=== PATIENT | female | born 1950 | race Caucasian/White ===

== ENCOUNTER → 2022-11-15 | Outpatient (CLI) | payer MEDICARE, SELFPAY ==
--- NOTE | 2022-11-15 10:58 | BD_ITS ---
STUDY: DUAL ENERGY X-RAY ABSORPTIOMETRY / DXA REASON FOR EXAM: Female, 72 years old. Postmenopausal. TECHNIQUE: Bone Mineral Density (BMD) measurements of lumbar spine and bilateral hips were obtained. COMPARISON: None. FINDINGS: Lumbar Spine (L1-L4): g/cm2 (0.926) / T-score (-1.1) / Z-score (1.3) Findings are suggestive of osteopenia with a low fracture risk. Left Femur Total: g/cm2 (0.669) / T-score (-2.2) / Z-score (-0.5) Left Femoral Neck: g/cm2 (0.668) / T-score (-1.6) / Z-score (0.4) Right Femur Total: g/cm2 (0.680) / T-score (-2.1) / Z-score (-0.4) Right Femoral Neck: g/cm2 (0.679) / T-score (-1.5) / Z-score (0.5) BD/Dexa Bone Density Study IMPRESSION: The patient is considered osteopenic as outlined below according to World James Organization (WHO) criteria with a moderate fracture risk. Reference Information: The T-score is the number of standard deviations above or below the standard which is normal for young adults at their peak bone mineral density. The World Health Organization (WHO) interprets the T-scores as follows: Above -1 Normal bone density Between -1 and -2.5 Osteopenia Equal to / or below -2.5 Osteoporosis As a practical clinical guideline, osteopenia may be graded as follows: Mild -1 through -1.5 Moderate -1.6 through -2.0 Severe -2.1 through -2.4 The Z-score is the number of standard deviations above or below age-matched controls. A Z-score of less than -1.5 would be considered abnormal. References: 1. NIH Osteoporosis and Related Bone Diseases www osteo.org 2. International Society for Clinical Densitometry www iscd.org 3. National Osteoporosis Foundation www nof.org Electronically Signed: Chavez Alcantar MD at 15:43 EST ,
== END | disposition home or self-care (01) ==
LOC: OPBD 10:51
PROVIDERS: PCP Internal Medicine; Referring Provider Orthopaedic Surgery; Visit Provider Orthopaedic Surgery
DX: M85.89 Other specified disorders of bone density and structure, multiple sites (principal)
CPT/HCPCS: 77080

== ENCOUNTER → 2022-12-07 | Outpatient (CLI) | payer MEDICARE, SELFPAY ==
--- NOTE | 2022-12-07 10:23 | MRI_ITS ---
STUDY: MRI LUMBAR SPINE WITHOUT CONTRAST REASON FOR EXAM: Female, 72 years old. Back pain. TECHNIQUE: Standardized fat and water weighted pulse sequences were obtained in the sagittal and axial planes. COMPARISON: Lumbar spine radiographs 11/02/2021. FINDINGS: T11-T12: Normal T11 inferior endplate. Mild anterior wedge compression fracture of the upper T12 vertebral body with moderate amount of bony edema involving the entire T12 vertebral body and the left T12 pedicle. This accounts of the mild increase disc space height. Mild ventral extradural defect due to mild retropulsion of the posterior superior corner of the upper T12 vertebral body fracture. Mild bilateral degenerative facet arthropathy. Normal central canal and bilateral lateral recesses. Normal bilateral intervertebral neural foramina. T12-L1: Normal endplates. Normal disc height, hydration and morphology. Normal bilateral facet joints. Normal central canal and bilateral lateral recesses. Normal bilateral intervertebral neural foramina. Normal lumbar lordosis. There is no substantial scoliosis. Normal conus medullaris that terminates at the lower T12 vertebral body level. L1-2: Schmorl''s node in the L1 inferior endplate. Normal L2 superior endplate. Mild disc space height narrowing. Minimal ventral extradural defect due to small posterior bulging annulus. No significant facet arthropathy. Normal central canal and bilateral lateral recesses. Benign focal fatty infiltration in the right posterior L2 vertebral body extending to the right L2 pedicle. Normal bilateral intervertebral neural foramina. L2-3: Minimal Modic type II degenerative vertebral marrow fat infiltration underneath the posterior vertebral endplates. Minimal disc space height narrowing. Minimal ventral extradural defect due to small posterior bulging annulus. No significant facet arthropathy. Mild dorsal epidural lipomatosis. Mild central canal stenosis with an AP canal diameter of 9 mm. Normal bilateral lateral recesses. Normal bilateral intervertebral neural foramina. L3-4: Normal endplates. Normal disc height and morphology. Mild asymmetric degenerative facet arthropathy, right greater than left. Mild to moderate central canal stenosis with an AP canal diameter of 8 mm. Mild dorsal epidural lipomatosis. Normal bilateral lateral recesses. Normal bilateral intervertebral neural foramina. L4-5: Normal endplates. Normal disc height. Minimal ventral extradural defect due to small posterior bulging annulus. Mild bilateral degenerative facet arthropathy. Pronounced posterior ligamenta flava hypertrophy. Severe central canal stenosis with an AP canal diameter of 3.2 mm to normal bilateral lateral recesses. Mild stenosis of the right intervertebral neural foramen. Normal left intervertebral neural foramen. L5-S1: Normal endplates. Normal disc height. Small posterior bulging annulus. Moderate right degenerative facet arthropathy. Mild left degenerative facet arthropathy. Mild to moderate central canal stenosis with an AP canal diameter of 8 mm secondary to developmentally short pedicles. Normal bilateral lateral recesses. Normal bilateral intervertebral neural foramina. Normal visualized sacral ala. Normal visualized paraspinous soft tissue structures. MRI/Spine Lumbar (Routine) IMPRESSION: 1. Mild recent anterior wedge compression fracture of the L2 vertebral body with extensive edema of the vertebral marrow of L2 body extending to the right L2 pedicle. This is feasible for kyphoplasty if patient has debilitating back pain referrable to this site. 2. Severe central canal stenosis at L4-L5 disc space level with an AP canal diameter of 3.2 mm secondary to developmentally short pedicles and pronounced posterior ligamenta flava hypertrophy. 3. Mild to moderate central canal stenosis at L5-S1 disc space level with an AP canal diameter of 8 mm secondary to developmentally short pedicles. 4. Mild central canal stenosis at L2-L3 disc space level with an AP canal diameter of 9 mm. 5. No MRI evidence of lumbar disc extrusion or disc protrusion. Electronically Signed: Jean-Pierre Sykes MD at 12:47 EST ,
== END | disposition home or self-care (01) ==
PROVIDERS: PCP Internal Medicine; Referring Provider Orthopaedic Surgery; Visit Provider Orthopaedic Surgery
DX: M54.50 Low back pain, unspecified (principal)
CPT/HCPCS: 72148

== ENCOUNTER → 2023-04-07 | Outpatient (CLI) | payer MEDICARE, SELFPAY ==
--- NOTE | 2023-04-07 | BONBX_PTH ---
PATIENT: ANTHONY SANTANA LOC: [facility] #:[id number] AGE/SX: 72/F ROOM: RE04/07/[address]: Dr. Arnold Luna MD : 1950 BED: DIS: 04/07/2023 SPEC #: [id number] RECD: 04/07/23 15:00 STATUS: MICHAEL WEBSTER #: [id number] BRADLEY: 04/07/23 00:[address]: Arnold Luna DEPT: SURGICAL PATHOLOGY RECD BY: Tiana Rivera ENTERED: 04/10/23 08:16 SP TYPE: Bone OTHR DR: Aggie Dumont MD [facility] Tissues: Vertebra, NOS Procedures: Decalcification bone/plaque Surgery Specimen Level V HEADER OPERATION: Kyphoplasty at T12 PRE-OP DIAGNOSIS: Compression fracture of T12 TISSUE SUBMITTED: Body of T12 MICROSCOPIC DIAGNOSIS T12 body, biopsy: A piece of bone with reactive changes, negative for malignancy. See comment. ROSIO:ricco 04/11/2023 COMMENT Clinical correlation and appropriate follow up are necessary. MICROSCOPIC DESCRIPTION Slides are reviewed. GROSS DESCRIPTION Received in fixative is one container labeled with the patient's name and designated body of T12. The specimen consists of an elongated piece of bone measuring 0.7 cm in length and 0.1 cm in diameter. The specimen is totally submitted in one cassette after decalcification. / ROSIO:ricco 04/10/2023 TC:5 CPT: 10534, 17150
== END | disposition home or self-care (01) ==
LOC: LABSPEC 15:42
PROVIDERS: PCP Internal Medicine; Referring Provider Anesthesiology Pain Medicine; Visit Provider Anesthesiology Pain Medicine
DX: S22.080A Wedge compression fracture of T11-T12 vertebra, initial encounter for closed fracture (principal); X58.XXXA Exposure to other specified factors, initial encounter
CPT/HCPCS: 88307; 88311

== ENCOUNTER → 2023-06-08 | Outpatient (CLI) | payer MEDICARE, SELFPAY ==
--- NOTE | 2023-06-08 15:39 | MRI_ITS ---
INDICATION: pain BETWEEN SHOULDER BLADES EXAMINATION: MRI - MR Spine Thoracic W/O Contrast TECHNIQUE: Multiplanar and multisequence MR images of the thoracic spine without contrast. IV Contrast Dosage and Agent: None. COMPARISON: Lumbar spine radiograph November 02, 2022 and MRI December 07, 2022. FINDINGS: VERTEBRAE: Normal general bone marrow signal. No fracture or acute compression deformity. Mild multilevel chronic anterior vertebral height loss in the mid to lower thoracic spine with exaggerated kyphosis. Prior T12 anterior compression deformity with vertebroplasty change. Mild chronic retropulsion of the superior endplate T12 with mild spinal canal stenosis and mild bilateral neural foraminal stenosis DISCS: Slight posterior disc bulge T7-T8, T8-9, and T9-T10 without significant spinal stenosis or neural foraminal stenosis. . CORD: Unremarkable in signal and morphology. Conus medullaris at T12-L1.. SOFT TISSUES: Bilateral apical 9 mm nodules.. MRI/Spine Thoracic (Routine) IMPRESSION: Bilateral upper lobe 9 mm indeterminate nodules. Cannot exclude malignancy. Dedicated CT chest characterization is recommended when clinically able. Slight multilevel posterior disc protrusions in the lower thoracic spine without significant spinal canal or neural foraminal stenosis Prior T12 anterior compression deformity with vertebroplasty change. Mild chronic retropulsion of the superior endplate T12 with mild spinal canal stenosis Mild chronic multilevel mid to inferior vertebral endplate degenerative change with exaggerated kyphosis Electronically Signed: Chema Blanton MD at 3:08 EDT ,
== END | disposition home or self-care (01) ==
LOC: MRI 15:19
PROVIDERS: PCP Internal Medicine; Referring Provider Orthopaedic Surgery; Visit Provider Orthopaedic Surgery
DX: M47.814 Spondylosis without myelopathy or radiculopathy, thoracic region (principal)
CPT/HCPCS: 72146

== ENCOUNTER → 2023-06-20 | Outpatient (CLI) | payer MEDICARE, SELFPAY ==
--- NOTE | 2023-06-20 12:17 | CT_ITS ---
INDICATION: lung nodule 9mm EXAMINATION: - CT Low Dose CT Chest for Lung Cancer Screening A radiation dose optimization technique was used for this scan. COMPARISON: None. FINDINGS: Low dose Noncontrast serial CT axial images through the chest with coronal and sagittal reformatted series. MEDIASTINUM: Dense coronary artery atherosclerotic calcifications. Noncontrast mediastinum is otherwise unremarkable. LUNG PARENCHYMA: Bilateral upper lung multiple pulmonary nodules, with dominant lesions: RIGHT apical spiculated nodule measuring up to 12 mm on axial image 43 of series 2 and LEFT apical 11 mm spiculated nodule on axial image 36. Biapical nodular pleural thickening is again noted as well. No acute pulmonary parenchymal abnormality. PLEURA: No pleural effusion. No pneumothorax. BONES: Lower thoracic spine compression deformity containing vertebroplasty cement.. UPPER ABDOMEN: Unremarkable. CT/Low Dose CT Lung Screening IMPRESSION: Pulmonary nodules as above measuring up to 12 mm. Lung-RADS CATEGORY 4A: Suspicious Findings for which additional diagnostic testing and/or tissue sampling is recommended: LDCT in 3 months. Electronically Signed: Denys Calderon MD at 7:30 EDT ,
== END | disposition home or self-care (01) ==
LOC: CT 12:16
PROVIDERS: PCP Internal Medicine; Referring Provider Orthopaedic Surgery; Visit Provider Orthopaedic Surgery
DX: R91.1 Solitary pulmonary nodule (principal); Z87.891 Personal history of nicotine dependence
CPT/HCPCS: 71271

== ENCOUNTER 2023-07-13 09:55 | Outpatient (CLI) | payer MEDICARE, SELFPAY ==
[2023-07-13 10:37] LABS: Absolute Lymphocyte Count 1.08 X10^3/uL (0.83-4.51); Absolute Neutrophil Count 2.2 X10^3/uL (2.0-7.7); Basophil# 0.02 X10^3/uL; Basophil% 0.5 % (0-1); Eosinophil# 0.06 X10^3/uL; Eosinophils% 1.6 % (0-5); Hematocrit 43.9 % (37-47); Hemoglobin 14.1 g/dL (12.0-15.0); Lymphocyte # 1.08 X10^3/ul (0.83-4.51); Lymphocyte % 29.3 % (19-41); Mean Corp Hgb Conc 32.1 g/dL (32-36); Mean Corpuscular Hgb 30.1 pg (27.0-32.0); Mean Corpuscular Volume 93.8 fL (81-99); Mean Platelet Vol. 10.7 fl (6.2-12.0); Monocyte# 0.37 X10^3/uL; Monocyte% 10.1 % (0-10); NRBC Flagged by Analyzer 0 % (0-5); Neutrophil # 2.15 X10^3/uL (2.7-7.7); Neutrophil % 58.5 % (47-70); Platelet Count 199 K/mm3 (150-450); RBC Distribution Width CV 13.2 % (11.6-14.6); RBC Distribution Width SD 45.8 fl (35.1-43.9); Red Blood Count 4.68 M/mm3 (4.2-5.4); White Blood Count 3.7 K/mm3 (4.4-11.0)
[2023-07-13 11:13] LABS: Anion Gap 4 (5-15); BUN 16 mg/dL (7-18); BUN/Creat Ratio 15.7 RATIO (10-20); Calcium,Total 9.6 mg/dL (8.5-10.1); Chloride 109 mmol/L (98-107); Creatinine, Serum 1.02 mg/dL (0.55-1.02); EST Glomerular Filtration Rate 56 mL/min (>60); Est Glom Filt Rate - Afr Amer 68 mL/min (>60); Glucose 99 mg/dL (74-106); Magnesium 2.6 mg/dL (1.6-2.6); Potassium 4.6 mmol/L (3.5-5.1); Sodium Level 141 mmol/L (136-145)
[2023-07-13 12:00] LABS: HIV - WCH Non-Reactive (Nonreactive); Hepatitis B Surface Antibody Reactive; Hepatitis C Antibody Non-Reactive (Nonreactive)
[2023-07-14 04:07] LABS: Hepatitis A AB, Total Negative (Negative)
== END 2023-07-13 23:59 | disposition home or self-care (01) ==
LOC: MTLAB 09:56
PROVIDERS: PCP Internal Medicine; Visit Provider Orthopaedic Surgery
DX: Z01.818 Encounter for other preprocedural examination (principal)
CPT/HCPCS: 36415; 80048; 83735; 85025; 86703; 86706; 86708; 86803; 87081

== ENCOUNTER 2023-07-25 14:36 | Observation (INO) | payer MEDICARE, SELFPAY ==
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
[2023-07-25] VITALS (18 sets, daily range): BP systolic 105–163; BP diastolic 53–106; PULSE 57–82; RESP 16–18; TEMP 36.1–36.9; O2SAT 93–100; BMI 22.4
[2023-07-25] MEDS: Lactated Ringers 1,000 ML 15 ML IV (09:57)
[2023-07-25] MEDS: Magnesium 1 GM over 15 mins IV (09:59)
[2023-07-25] MEDS: Acetaminophen 500 MG Tablet 1000 MG PO ×2 (10:02→21:41)
[2023-07-25 10:13] LABS: Bedside Glucose 93 mg/dL (74-106)
[2023-07-25] MEDS: Cefazolin 2 GM in 0.9% Normal Saline (100mL Bag) 100 ML IV (12:00)
[2023-07-25] MEDS: THROMBIN (RECOMBINANT) 20,000 UNIT VIAL 20000 UNIT TOPICAL (12:31)
--- NOTE | 2023-07-25 12:45 | RAD_ITS ---
STUDY: X-RAY - LUMBAR SPINE REASON FOR EXAM: Female, 73 years old. LAMINECTOMY DECOMPRESSION L4-5 TECHNIQUE: Single lateral view(s) of the lumbar spine were obtained. COMPARISON: None FINDINGS: The localization instrument is seen posterior to the L4-L5 disc space level. RAD/Spine 1 View Any Level IMPRESSION: The localization instrument is seen posterior to the L4-L5 disc space level. Electronically Signed: Chavez Alcantar MD at 13:00 EDT ,
--- NOTE | 2023-07-25 14:42 | PCM.OPRPT ---
Report of Operation Description of Surgical Findings:: Preoperative diagnosis: Severe spinal stenosis L4-5 Postoperative diagnosis: Same Procedure: Lumbar laminectomy decompression L4-5 CPT code 02638 Surgeon: Dr. Fragoso Waist Pleater: Tahira MORSE Anesthesia: General endotracheal by [facility] EBL: Less than 30 cc Drains: None Complications: None Procedure: Patient was taken to the OR where she was placed under general endotracheal anesthesia. A Smith catheter was inserted. Neuro monitoring placed his leads on the patient. The patient was then rolled over onto the prone position on the Neal frame. After proper positioning with care to protect her bony prominences her breasts and her brachial plexus and ulnar nerve on the right side her left shoulder would not abduct very well so we had to put her arm straight and held it in such a way that was safe. Her arm basically was at her side. The back was then prepped and draped in standard fashion. I then made a longitudinal incision centered over L4-5. Subcutaneous tissues were incised the length of the skin incision. I opened the lumbar fascia to the left of the spinous processes or a small incision and elevated the paravertebral muscles we put a marker in place between spinous process and it turned out to be L3-4 we simply moved down 1 level which was actually quite close to the another x-ray just to confirm that we were indeed at L4-5 which we were. Then elevated the rest of the paravertebral muscles off the top of the lamina 5 and the lamina of L4. We opened the right side exact same fashion elevating the paravertebral muscles off the lamina for and the top of the lamina 5. Bleeders were controlled with cautery. We thoroughly irrigated several times in the course of the case with COVID amounts of sterile saline. The super slide retractors were then put in place given us good access to the spinous process of L4 we remove the spinous process of L4 with double-action rongeurs we also removed little bit of the bottom of the spinous process of L3 and the top of the spinous process of L4-5. I then used small sharp curettes released the ligamentum flavum off the underside of the lamina of L4.. I then performed laminectomy carefully on both the right and left side with 45 degree Kerrison rongeurs. This was done until we stop the ligamentum flavum. I then release ligamentum flavum in its midline which was quite thin anyway and then really released it off the top of the lamina of L5 on both sides. I then began the slow process of removing the ligamentum flavum. Notes on this particular patient the majority of her severe stenosis was because of the thickened and shortened ligamentum flavum. It was a slow and tedious process because of the amount of stenosis that she had. Is very careful as I slowly removed the ligamentum flavum 1 small bite at a time. We protected the dura when we could either using cottonoids or I would use 1 hand to retract as I remove the ligamentum flavum I completely removed it off the right side first and checked the foramen was found to be quite open on the right side I then moved to the opposite side of the table as it is easier to remove the ligamentum flavum from the left side if 1 is on the patient's right. Again this is a very tedious process but I slowly and carefully move did not removed it all the way out to the lateral recess. I then checked the foramen and it was quite open. We controlled bleeding with either bipolar cautery or for bleeding bone we used bone wax. The end of the case we had excellent hemostasis. We also used thrombin-soaked Gelfoam in the epidural area. Once that was done I then placed the amniotic membrane directly over the dura and placed Gelfoam over the top of that. We had such good control by the end of the case we felt that a drain was not necessary. Close lumbar fascia using [id number]-[id number] suture with #1 Vicryl followed by closure with subcutaneous tissues with 2-0 Vicryl in and in layers in interrupted fashion and the skin was approximated using skin clips. Sterile dressings were then applied. The patient was then recovered in the OR she was moved to her hospital bed and taken to recovery in satisfactory condition. This the end of operative summary on Nohelia Li. This is Dr. Fragoso dictating.
--- NOTE | 2023-07-25 18:25 | PCM.PN.HOSP ---
Reason for Visit Reason for Visit: Severe spinal stenosis L4-L5 Subjective Subjective Patient is a 73-year-old who presented to [facility] for an elective lumbar laminectomy decompression at L4-L5 due to severe spinal stenosis. She evidently had been having some issues for some time and had undergone spinal injections which had been beneficial however she knew that it would not be a chronic fix and wanted to pursue surgical intervention. She does have a history of a T12 fracture for which a kyphoplasty was performed. We have been consulted for postoperative management. She is doing fine other than some postoperative pain in her back and legs proximally. She is tolerating a regular diet. We did discuss the need for stool softener and I told her I would order 1 as needed and that she would need to ask for it if she wanted 1. Objective Data Objective Data Vital Signs: Vital Signs Temp Pulse Resp BP Pulse Ox O2 Del Method O2 Flow Rate 97.7 F L 78 18 151/83 H 98 Room Air 2 07/25/23 17:54 07/25/23 17:54 07/25/23 17:54 07/25/23 17:54 07/25/23 17:54 07/25/23 17:54 07/25/23 16:45 Oxygen Flow Rate (L/min) 2 Oxygen Delivery Method Room Air Weight: 69 kg Body Mass Index (BMI) 22.4 Intake & Output: Intake and Output for Last 24 Hours 07/23/23 07/24/23 07/25/23 23:59 23:59 23:59 Intake Total 1338.25 / 1338.25 Output Total 800 / 800 Balance 538.25 / 538.25 Lab / Micro Data Labs: Laboratory Results - last 24 hr 07/25/23 09:51: POC Glucose 93 Radiography Diagnostic Testing: Radiology Impression Spine X-Ray 07/25/23 12:45 IMPRESSION: The localization instrument is seen posterior to the L4-L5 disc space level. Electronically Signed: Chavez Alcantar MD at 13:00 EDT , Physical Exam Const alert, oriented x3, no apparent distress, average body habitus and well nourished Constitutional Narrative: Older, white female, sitting on bed eating dinner, appears comfortable nontoxic, daughter at bedside HEENT head/scalp atraumatic and moist oral mucous membranes Head and Scalp: normocephalic Resp normal respiratory effort, no retractions, no use of accessory muscles and clear to auscultation bilaterally Resp Narrative: Diminished but clear Auscultation: Negative for rales, rhonchi or wheezes Cardio regular rate, regular rhythm, S1 normal heart sound, S2 normal heart sound, no murmurs, no rub and no gallops GI normal to inspection, nondistended, normoactive bowel sounds, soft to palpation and non-tender Extremity no clubbing, cyanosis or edema Extremity Narrative: Pedal pulses are 2+ Neuro oriented x3 and no focal motor deficits Speech: speech normal Psych affect normal Psych Narrative: Pleasant, eye contact is good, patient interacts normally Assessment & Plan Assessment/Plan (1) Spinal stenosis of lumbar region without neurogenic claudication: PLAN: Plan Severe spinal stenosis of L4-L5 -Postop day 0 lumbar laminectomy decompression at same level -Pain management per primary service -Bowel regimen ordered -Therapy services per primary service Hyperlipidemia -Continue home statin History of pulmonary nodules -Follows as an outpatient with pulmonary medicine CAD -Remote stent placement--> patient reports she had 4 stents placed 20 years ago and has not had any issues since -Continue Plavix -No current issues Osteoporosis -Continue vitamin D supplementation -Continue alendronate after discharge History of tobacco abuse -Remote DVT prophylaxis -Per primary service Charges/Coding Visit Charges Inpatient E&M: 15949 Subs Hosp L2
[2023-07-25] MEDS: Lactated Ringers 1,000 ML 100 ML IV (18:38)
[2023-07-25] MEDS: oxyCODONE 5 MG Tablet PO ×2 (18:50→20:17)
[2023-07-25] MEDS: 0.9% Saline Lock 10 ML Syringe IV (20:19)
[2023-07-25] MEDS: 0.9% Normal Saline (250mL Bag) 250 ML 15 ML IV (20:29)
[2023-07-25] MEDS: Cefazolin 1 GM/50 ML BAG IV (20:37)
[2023-07-25] MEDS: Atorvastatin Calcium 20 MG Tablet PO (21:40)
[2023-07-26 00:14] VITALS: BP 105/56; PULSE 78; RESP 16; TEMP 36.8; O2SAT 94
[2023-07-26] MEDS: oxyCODONE 5 MG Tablet PO ×2 (00:18→09:01)
[2023-07-26 02:48] VITALS: BP 107/59; PULSE 77; RESP 18; TEMP 36.6; O2SAT 95
[2023-07-26 04:15] VITALS: BP 116/57; PULSE 72; RESP 18; TEMP 36.7; O2SAT 94
[2023-07-26] MEDS: 0.9% Saline Lock 10 ML Syringe IV (04:19)
[2023-07-26] MEDS: Cefazolin 1 GM/50 ML BAG IV (04:20)
[2023-07-26] MEDS: diazePAM 5 MG Tablet PO ×2 (04:50→11:24)
[2023-07-26] MEDS: Senna/Docusate Sodium 1 Tablet 2 TABLET PO (04:59)
[2023-07-26] MEDS: Acetaminophen 500 MG Tablet 1000 MG PO ×2 (05:00→13:45)
[2023-07-26 05:01] VITALS: BP 112/55; PULSE 72; RESP 18; TEMP 36.7; O2SAT 98
[2023-07-26 06:33] LABS: Absolute Lymphocyte Count 1.22 X10^3/uL (0.83-4.51); Absolute Neutrophil Count 11.3 X10^3/uL (2.0-7.7); Basophil# 0.01 X10^3/uL; Basophil% 0.1 % (0-1); Hematocrit 39.3 % (37-47); Hemoglobin 12.4 g/dL (12.0-15.0); Lymphocyte # 1.22 X10^3/ul (0.83-4.51); Mean Corp Hgb Conc 31.6 g/dL (32-36); Mean Corpuscular Hgb 30.2 pg (27.0-32.0); Mean Corpuscular Volume 95.6 fL (81-99); Mean Platelet Vol. 11.2 fl (6.2-12.0); Monocyte# 1.02 X10^3/uL; Monocyte% 7.5 % (0-10); NRBC Flagged by Analyzer 0 % (0-5); Neutrophil # 11.26 X10^3/uL (2.7-7.7); Platelet Count 202 K/mm3 (150-450); RBC Distribution Width CV 13.1 % (11.6-14.6); RBC Distribution Width SD 45.8 fl (35.1-43.9); Red Blood Count 4.11 M/mm3 (4.2-5.4); White Blood Count 13.6 K/mm3 (4.4-11.0)
[2023-07-26 07:04] LABS: ALB/GLOB Ratio 1.1 RATIO (0.9-2.4); AST(SGOT) 42 U/L (15-37); Alanine Aminotransfer ALT/SGPT 53 U/L (13-56); Albumin, Serum 3.4 g/dL (3.2-5.0); Alkaline Phosphatase 76 U/L (45-117); Anion Gap 2 (5-15); BUN 11 mg/dL (7-18); BUN/Creat Ratio 10.9 RATIO (10-20); Calcium,Total 8.4 mg/dL (8.5-10.1); Chloride 111 mmol/L (98-107); Creatinine, Serum 1.01 mg/dL (0.55-1.02); EST Glomerular Filtration Rate 57 mL/min (>60); Est Glom Filt Rate - Afr Amer 69 mL/min (>60); Glucose 119 mg/dL (74-106); Magnesium 2.4 mg/dL (1.6-2.6); Phosphorus 2.3 mg/dL (2.5-4.9); Potassium 4.4 mmol/L (3.5-5.1); Protein, Total 6.4 g/dL (6.4-8.2); Sodium Level 141 mmol/L (136-145)
[2023-07-26 09:05] VITALS: BP 116/57; PULSE 72; RESP 18; TEMP 36.6; O2SAT 99
--- NOTE | 2023-07-26 09:20 | CASEMGMT ---
DEJAN SALAS Face to Face with patient for initial transition planning/care coordination assessment. DEJAN SALAS introduced self and role at [facility]. Patient lying in bed, alert and oriented. Patient willing to participate in assessment and is able to answer all questions appropriately. Care providers, pharmacy, and demographics verified. Patient wishes to discharge home. Patient states he has no further needs or concerns at this time. CM to follow for discharge planning needs that may arise. PCP:Tim Specialists:[facility] pain mgmt; [facility] Preferred Pharmacy:[facility] Retail Insurance:[facility] Prescription Benefit: yes LNOK:Johan Li, son; Tigist Li, dtr Living Arrangements:Pt lives with son and dil in a two story home with 1 step to enter. Pt has her bedroom on the first floor for this week as well as a bathroom. Pt reports she is typically I in ADL's and denies concerns at home. Transportation: Pt drives self and denies concerns with transportation. Pt son and dtr will transport her to medical appts until she can drive again. DME:standard walker, metal trimmer, rails over toilet- Pt states she purposefully bought a standard walker and not FWW d/t home situation. HHC:Denies hx of SNF:Denies hx of Disposition Plan:Home
--- NOTE | 2023-07-26 12:03 | DCINST_ITS ---
Discharge Instructions Activity May shower in (days): 4 May resume sexual activity in: 4-6 weeks Lifting Restrictions: 15 Dressing / Incision Remove Dressing in: 3 days Follow Up Care Test Results: Test results from this visit will be discussed in further detail at your follow- up appointment, if applicable. Discharge Plan Admission Admit Date/Time: 07/25/23 14:36 Primary Reason for Your Visit: lumbar surgery Attending Provider: Sami Fragoso Primary Care Provider: Aggie Dumont Consulting Providers: Nevaeh Hickman Discharge Orders/Prescriptions Prescriptions: No Action cholecalciferol (vitamin D3) 125 mcg (5,000 unit) capsule 125 mcg PO DAILY fixaimwfamgp-Bo-zfvg-minerals Tablet 1 tab PO DAILY omega 2-syi-dci-fish oil [Fish Oil] 300-1,000 mg capsule 1 cap PO DAILY danitza root extract 50 mg tablet 1,100 mg PO DAILY ascorbate calcium (vitamin C) 500 mg tablet 600 mg PO DAILY biotin 10,000 mcg capsule 10,000 mcg PO DAILY clopidogrel 75 mg tablet 75 mg PO DAILY atorvastatin 20 mg tablet 20 mg PO DAILY alendronate 70 mg tablet 70 mg PO QWEEK Patient Comments: PLEASE SEE ATTACHED FOR DETAILED DIRECTIONS amlodipine 2.5 mg tablet 2.5 mg PO DAILY Referrals / Follow Up: Aggie Dumont MD [Primary Care Provider] - Disposition Disposition (needs filled in before D/C Order can be placed): Home, Self Care
--- NOTE | 2023-07-26 12:05 | PCM.DC.SUM ---
Providers Date of Admission: 07/25/23 Primary Care Physician: Aggie Dumont MD Attending Physician: This is a discharge summary on Nohelia Li. She was admitted yesterday and underwent lumbar laminectomy decompression at the L4-5 level. Today she is doing well. Her back does hurt as expected of course. But she states that it only hurts have as much as she anticipated that it would, for what that is worth. Neurologically she is intact in both lower extremities. She is already been up and walked. Her dressing is dry. Gave her and her daughter Tigist directions regarding the patient's activities. She knows to make an appoint to see me in a couple of weeks. I will give her Valium for her discomfort as that helps her much more than the oxycodone in fact oxycodone hardly helped her at all. I answered all of her questions and I gave her directions regarding her activities over the next several days. This is the end of discharge summary on Kamila Li. This is Dr. Fragoso dictating. Consultations 07/25/23 14:58 Consult: Hospitalist Routine Consulting Provider: Nevaeh Hickman Reason for Consult: Medical Management EMERGENT Consult: No MD Notified: Yes Date Notified: 07/25/23 Time Notified: 17:50 Method of Notification: Text Reason For Visit: Lumbar laminectomy decompression L4 Diagnosis Discharge Diagnosis (1) Spinal stenosis of lumbar region without neurogenic claudication: Status: Acute Code(s): M48.061 - Spinal stenosis, lumbar region without neurogenic claudication Medications at Discharge Home Medications ascorbate calcium (vitamin C) 500 mg tablet 600 mg PO DAILY 11/02/22 atorvastatin 20 mg tablet 20 mg PO DAILY 11/02/22 biotin 10,000 mcg capsule 10,000 mcg PO DAILY 11/02/22 cholecalciferol (vitamin D3) 125 mcg (5,000 unit) capsule 125 mcg PO DAILY 11/02/22 clopidogrel 75 mg tablet 75 mg PO DAILY 11/02/22 danitza root extract 50 mg tablet 1,100 mg PO DAILY 11/02/22 rxjzwyqzzmke-On-jewy-minerals 1 tab PO DAILY 11/02/22 omega 2-szy-oti-fish oil 300 mg-1,000 mg capsule (Fish Oil) 1 cap PO DAILY 11/02/22 alendronate 70 mg tablet 70 mg PO QWEEK 01/26/23 amlodipine 2.5 mg tablet 2.5 mg PO DAILY 07/13/23 Weight / BMI Weight Weight: 152 lb 1.903 oz Body Mass Index (BMI) 22.4 ABG / Lab / Microbiology Data 07/26/23 06:03 07/26/23 06:03 Laboratory: Laboratory Results - last 24 hr 07/26/23 06:03: WBC 13.6 H, RBC 4.11 L, Hgb 12.4, Hct 39.3, MCV 95.6, MCH 30.2, MCHC 31.6 L, RDW Std Deviation 45.8 H, RDW Coeff of Elizabeth 13.1, Plt Count 202, MPV 11.2, Immature Gran % (Auto) 0.400, Neut % (Auto) 83.0 H, Lymph % (Auto) 9.0 L, Williams % (Auto) 7.5, Eos % (Auto) 0.0, Baso % (Auto) 0.1, Absolute Neuts (auto) 11.3 H, Absolute Lymphs (auto) 1.22, Nucleated RBC % 0, Sodium 141, Potassium 4.4, Chloride 111 H, Carbon Dioxide 28.0, Anion Gap 2 L, BUN 11, Creatinine 1.01, Estim Creat Clear Calc 50.30, Est GFR (MDRD) Af Amer 69, Est GFR (MDRD) Non-Af 57 L, BUN/Creatinine Ratio 10.9, Glucose 119 H, Calcium 8.4 L, Phosphorus 2.3 L, Magnesium 2.4, Total Bilirubin 0.70, AST 42 H, ALT 53, Alkaline Phosphatase 76, Total Protein 6.4, Albumin 3.4, Globulin 3.0, Albumin/Globulin Ratio 1.1 Radiography Diagnostic Testing: Radiology Impression Spine X-Ray 07/25/23 12:45 IMPRESSION: The localization instrument is seen posterior to the L4-L5 disc space level. Electronically Signed: Chavez Alcantar MD at 13:00 EDT , D/C Instructions May shower in (days): 4 May resume sexual activity in: 4-6 weeks Meaningful Use Info Meaningful Use Diagnoses (Choose all that apply): None applicable Discharge Plan Admission Admit Date/Time: 07/25/23 14:36 Primary Reason for Your Visit: lumbar surgery Attending Provider: Sami Fragoso Primary Care Provider: Aggie Dumont Consulting Providers: Nevaeh Hickman Discharge Orders/Prescriptions Prescriptions: No Action cholecalciferol (vitamin D3) 125 mcg (5,000 unit) capsule 125 mcg PO DAILY yjatcnkakzsf-Ua-aqcw-minerals Tablet 1 tab PO DAILY omega 7-qks-yqr-fish oil [Fish Oil] 300-1,000 mg capsule 1 cap PO DAILY danitza root extract 50 mg tablet 1,100 mg PO DAILY ascorbate calcium (vitamin C) 500 mg tablet 600 mg PO DAILY biotin 10,000 mcg capsule 10,000 mcg PO DAILY clopidogrel 75 mg tablet 75 mg PO DAILY atorvastatin 20 mg tablet 20 mg PO DAILY alendronate 70 mg tablet 70 mg PO QWEEK Patient Comments: PLEASE SEE ATTACHED FOR DETAILED DIRECTIONS amlodipine 2.5 mg tablet 2.5 mg PO DAILY Referrals / Follow Up: Aggie Dumont MD [Primary Care Provider] - Disposition Disposition (needs filled in before D/C Order can be placed): Home, Self Care
--- NOTE | 2023-07-26 12:28 | NURSING ---
due to technical error- charting by Velvet Jenkins RN 07/26 at 0258 was charted by Rae Martin LPN
[2023-07-26 13:37] VITALS: BP 119/66; PULSE 73; RESP 18; TEMP 36.6; O2SAT 99
== END 2023-07-26 14:19 | disposition home or self-care (01) ==
LOC: MS3 07-26 09:33 → SDC 07-26 09:34 → MS3 07-26 09:34
PROVIDERS: Internal Medicine; Admitting Provider Orthopaedic Surgery; PCP Internal Medicine; Referring Provider Orthopaedic Surgery; Visit Provider Orthopaedic Surgery
PROC: (CPT 63030; principal; 2023-07-25 10:45)
DX: M48.061 Spinal stenosis, lumbar region without neurogenic claudication (principal); Z87.891 Personal history of nicotine dependence; Z79.899 Other long term (current) drug therapy; Z79.02 Long term (current) use of antithrombotics/antiplatelets; M47.814 Spondylosis without myelopathy or radiculopathy, thoracic region; E78.5 Hyperlipidemia, unspecified; I25.10 Atherosclerotic heart disease of native coronary artery without angina pectoris; M81.0 Age-related osteoporosis without current pathological fracture
CPT/HCPCS: 63047; 00630; 36415; 72020; 80053; 82962; 83735; 84100; 85025; 94668; 96361; 96365; 96366; 97161; 99221; 99252; J7050; J7120; A4216; G0378; G0463; J2405; J3475

== ENCOUNTER → 2023-09-14 | Outpatient (CLI) | payer MEDICARE, SELFPAY ==
--- NOTE | 2023-09-14 14:50 | CT_ITS ---
INDICATION: B/L pulmonary nodules EXAMINATION: CT CHEST WITHOUT CONTRAST - CT Chest W/O Contrast Injection TECHNIQUE: Helically acquired images were obtained of the chest. A radiation dose optimization technique was used for this scan. IV Contrast dosage and agent: None. RADIATION DOSAGE (If Supplied By Facility): CTDIvol = ( 6.64 ) mGy, DLP = ( 248.77 ) mGycm COMPARISON: Prior study dated: 06/20/2023. FINDINGS: LUNGS, PLEURA AND LARGE AIRWAYS: Spiculated 12 mm right upper lobe nodule stable since previous exam seen on image 22 series 4. Stable 11 mm left upper lobe nodule seen on image 19 series 4. Small 4 mm left upper lobe nodule best seen on image 23 series 4. Mild stranding/scarring in the right lower lobe. No focal infiltrate is seen. No evidence of new nodules. No pleural effusion or thickening. No pneumothorax. THYROID: No thyroid lesions. HEART AND PERICARDIUM: Heart size is normal. No pericardial effusion. CORONARY ARTERIES: Coronary artery calcification are seen. VESSELS: Atherosclerotic calcifications and mild tortuosity of the thoracic aorta without evidence of aneurysm. MEDIASTINUM AND RICCI: Few small normal-sized mediastinal nodes. No evidence of hilar or mediastinal adenopathy. Esophagus is unremarkable. No hiatal hernia. UPPER ABDOMEN: No acute pathology. BONES: Vertebroplasty lower thoracic vertebra is again seen. CT/Chest without Contrast IMPRESSION: Stable bilateral upper lobe nodules for which further follow-up exam in 3 months or correlation with PET scan is recommended, Lung-RADS 3 category 4A. Electronically Signed: Phillip Crews MD at 15:38 EST ,
== END | disposition home or self-care (01) ==
LOC: CT 14:21
PROVIDERS: PCP Internal Medicine; Referring Provider Internal Medicine Critical Care Medicine; Visit Provider Internal Medicine Critical Care Medicine
DX: R91.8 Other nonspecific abnormal finding of lung field (principal)
CPT/HCPCS: 71250

== ENCOUNTER → 2025-01-28 | Outpatient (CLI) | payer MEDICARE, SELFPAY ==
--- NOTE | 2025-01-28 09:33 | BD_ITS ---
PROCEDURE: DEXA BONE DENSITY STUDY 01/28/2025 REASON FOR EXAM: F, age 74 y/o . Postmenopausal. TECHNIQUE: DXA scan of the lumbar spine and both hips, using make and model. REFERENCE LINKS: [facility] Adult Positions COMPARISON: Comparison is made with prior study dated November 15, 2022. FINDINGS: BMD and T-SCORES Lumbar spine: 0.931 g/cm2, T-Score -1.1 L1 through L4 Change from prior: Improvement by 0.5% Left femoral neck: 0.622 g/cm2, T-Score -2.0 Femoral neck comparison data not recommended for monitoring change. Left total hip: 0.659 g/cm2, T-Score -2.3 Change from prior: Worsening by 1.4% Right femoral neck: 0.679 g/cm2, T-Score -1.5 Femoral neck comparison data not recommended for monitoring change. Fracture Risk Calculation: FRAX (10-year Fracture Risk) Score: FRAX scores should never be reported in a patient with osteoporosis on DEXA or for any patient that is on bone medication. The patient doesmeet the pharmacological treatment recommendations for prevention of osteoporosis BD/Dexa Bone Density Study IMPRESSION: OSTEOPENIA. Recommend follow-up as clinically warranted. Reading Location: [facility]
== END | disposition home or self-care (01) ==
LOC: OPBD 09:30
DX: M81.0 Age-related osteoporosis without current pathological fracture (principal); Z78.0 Asymptomatic menopausal state
CPT/HCPCS: 77080